=== PATIENT | male | born 1980 | race Two or more races ===

== ENCOUNTER 2020-03-19 13:23 | Inpatient (IN) | payer OTHER, SELFPAY ==
[2020-03-19 13:28] VITALS: BP 136/73; PULSE 73; RESP 18; TEMP 37.2; O2SAT 96; BMI 27.6
--- NOTE | 2020-03-19 13:32 | ED.PSYCH ---
HPI - Psych General Chief Complaint: Psychiatric Symptoms Stated Complaint: section 12,+SI Time Seen by Provider: 03/19/20 13:28 Source: EMS Mode of arrival: EMS Limitations: no limitations History of Present Illness HPI Narrative: 39-year-old male with past medical history of substance abuse and schizophrenia presenting EMS from [facility] with complaint of suicidal ideations. Patient currently on methadone went to detox apparently today and made statements of suicidal ideations with thoughts to ?overdose.... Cut throat? patient was subsequently Section 12 to the emergency room. He reports he has been increasingly feeling depressed has been taking his medications prescribed has not used any heroin or cocaine in over 30 days. He denies any medical complaints at this time. MD complaint: suicidal ideation and feels depressed Duration: constant History of same: Yes Relieving factors: none Exacerbating factors: none Associated psychiatric symptoms: depression and suicidal ideation Treatments prior to arrival: none If self harm: other Related Data Home Medications Medication Instructions Recorded Confirmed benztropine 0.5 mg PO BID 03/19/20 03/19/20 bupropion HCl 300 mg PO QAM 03/19/20 03/19/20 clonidine HCl 0.1 mg PO TID PRN 03/19/20 03/19/20 gabapentin 300 mg PO TID 03/19/20 03/19/20 haloperidol [Haldol] 5 mg PO BID 03/19/20 03/19/20 hydroxyzine pamoate 25 mg PO QID PRN 03/19/20 03/19/20 melatonin 6 mg PO BEDTIME 03/19/20 03/19/20 methadone 55 mg PO DAILY 03/19/20 03/19/20 mirtazapine 15 mg PO BEDTIME 03/19/20 03/19/20 trazodone 50 mg PO BEDTIME PRN 03/19/20 03/19/20 Allergies Allergy/AdvReac Type Severity Reaction Status Date / Time No Known Allergies Allergy Unverified 01/10/20 18:30 Review of Systems Review of Systems: Constitutional: No Weight loss, No Fever, No Chills, No Night Sweats, No Fatigue, No Malaise ENT/Mouth: No Hearing loss, No Ear Pain, No Nasal Congestion, No Sinus Pain, No Hoarseness, No sore throat, No Rhinorrhea, No Swallowing Difficulty Eyes: No Eye Pain, No Swelling, No Redness, No Foreign Body, No Discharge, No Vision Changes Cardiovascular: No Chest Pain, No SOB, No Dyspnea on Exertion, No Orthopnea, No Edema, No Palpitations Respiratory: No Cough, No Sputum, No Wheezing, No Dyspnea Gastrointestinal: No Nausea, No Vomiting, No Diarrhea, No Constipation, No abdominal Pain, No Hematochezia, No Melena Genitourinary: no irregular bleeding, No Dysuria, No Urinary Frequency, No Hematuria, No Urinary Incontinence, No Urgency, No Flank Pain, No Urinary Flow Changes, No Hesitancy Musculoskeletal: No joint pain, No Myalgias, No Joint Swelling Skin: No Skin Lesions, No rash Neuro: No Weakness, No Numbness, No Paresthesias, No Loss of Consciousness, No Dizziness, No Headache Psych: As noted in HPI Heme/Lymph: No Bruising, No Bleeding,No Lymphadenopathy Endocrine: No Polyuria, No Polydipsia, No Temperature Intolerance Yes all other systems are reviewed and are negative [facility] Past Medical History Medical History Schizophrenia Substance abuse Social History Social History Alcohol intake: unknown Use of substances other than those prescribed or required for medical reasons: Yes Substance Use Type: Crack/Cocaine and Heroin Substance Use Frequency: Chronic Longstanding Last Used Substance: Weeks (ago) Any prior treatment program specific to substance use: Yes Advance Directives: No Advance Directives Information Provided: No Physical Exam Vital Signs: Vital Signs: Last Vital Signs Temp 98.3 F 03/19/20 20:17 Pulse 89 03/19/20 20:17 Resp 20 03/19/20 20:17 BP 121/76 03/19/20 20:17 Pulse Ox 96 03/19/20 20:17 Body Mass Index 27.6 Reviewed Const: General: cooperative and healthy appearing; No acute distress or intoxicated appearing Nutritional Appearance: average body habitus Orientation/consciousness: patient oriented x3 HENMT: Head: Yes normal to inspection Ears: hearing grossly normal bilaterally Eyes: General: appearance normal, both eyes and all related structures Visual Thompson: normal visual thompson by confrontation Neck: Neck: Yes normal visual inspection, No positive Brudzinski's sign, No positive Kernig's sign and No tender Thyroid: Thyroid normal Chest: Chest palpation & inspection: normal inspection of the chest Resp: Effort & Inspection: normal respiratory effort Cardio: Jugular venous distension: no JVD GI: Inspection: Yes normal to inspection Percussion: Yes normal to percussion Auscultation: normal bowel sounds : General: Yes no CVA tenderness Back/Spine/Pelvis: Back: no CVA tenderness Skin: General skin exam: no rashes or lesions noted Neuro: General: patient oriented x3 Extrem: General: Yes normal to inspection Course Course Course Narrative: 1335 Offers no medical complaints. Will obtain medical screening labs and crisis evaluation. Reevaluation(s) Reevaluation #1: 1520 The nurses currently completing the med rec Labs overall stable medically cleared for psychiatric evaluation consult faxed to [facility]. Patient remains stable will continue monitor and dispo per plan. Reevaluation #2: Evaluated crisis team recommendation for respite level care. Able to secure respite in [facility] with recommendation to hold overnight to re-evaluate in the morning and be present given better wall been up in the morning. Crisis team will do MSU in the morning and re-presented to the respite. Reevaluation #3: 2110 Sign-out this time to Ti DAVENPORT Pending crisis re-evaluation/respite placement in the morning MDM - Psych Lab Data Result diagrams: 03/19/20 13:53 03/19/20 13:53 Labs: Lab Results 03/19/20 03/19/20 03/19/20 Range/Units 13:53 13:53 13:53 WBC 9.2 (4.8-10.8) X10*3/uL RBC 4.84 (4.60-5.80) X10*6/uL Hgb 12.4 L (14.0-18.0) g/dl Hct 38.9 L (42-52) % MCV 80.4 (80-98) fL MCH 25.6 L (27.0-33.0) pg MCHC 31.9 (31.0-36.0) g/dl RDW 15.2 (11.0-16.0) % Plt Count 171 (160-400) X10*3/uL MPV 12.0 (9.4-12.4) fL Immature Gran % (Auto) 0.3 (0.0-0.4) % Neut % (Auto) 66.0 (45-73) % Lymph % (Auto) 25.0 (20-40) % [place] % (Auto) 7.1 (2-11) % Eos % (Auto) 1.4 (0-4) % Baso % (Auto) 0.2 (0-2) % Lymph # (Auto) 2.3 (1.2-4.9) X10*3/uL [place] # (Auto) 0.7 (0.1-1.2) X10*3/uL Eos # (Auto) 0.1 (0.0-0.4) X10*3/uL Baso # (Auto) 0.0 (0.0-0.2) X10*3/uL Abs Immat Gran (auto) 0.03 (0.00-0.03) X10*3/uL Absolute Neuts (auto) 6.0 (2.0-8.3) X10*3/uL Absolute Nucleated RBC 0.000 (0.0-0.012) X10*3/uL Nucleated RBC % (auto) 0.0 (0.0-0.2) /100WBC Sodium 140 (135-145) mmol/L Potassium 4.4 (3.3-5.1) mmol/l Chloride 104 (96-108) mmol/L Carbon Dioxide 30 H (22-29) mmol/L Anion Gap 10 L (12-20) BUN 14 (9-16) mg/dL Creatinine 0.87 (0.5-1.4) mg/dL Estim Creat Clear Calc 103.3 Estimated GFR > 60 Random Glucose 90 (60-115) mg/dL Calcium 8.8 (8.4-10.2) mg/dL Total Bilirubin 0.3 (0.0-1.0) mg/dL AST 23 (5-37) U/L ALT 24 (0-40) U/L Alkaline Phosphatase 148 H (39-117) U/L Total Protein 7.3 (6.5-8.0) g/dL Albumin 4.1 (3.5-5.0) g/dL Urine Color Urine Appearance Urine pH (5.0-8.0) Ur Specific [place] (1.005-1.025) Urine Protein (NEG-TRACE) MG/DL Urine Glucose (UA) (NEG) MG/DL Urine Ketones (NEG) MG/DL Urine Blood (NEG) Urine Nitrite (NEG) Ur Leukocyte Esterase (NEG) Urine RBC (0) /HPF Urine WBC (0-4) /HPF Ur Squamous Epith Cells /LPF Urine Bacteria /LPF Urine Opiates Screen (Not Detect) Ur Barbiturates Screen (Not Detect) Ur Phencyclidine Scrn (Not Detect) Ur Amphetamines Screen (Not Detect) U Benzodiazepines Scrn (Not Detect) Urine Cocaine Screen (Not Detect) U Marijuana (THC) Screen (Not Detect) Ethyl Alcohol < 10 mg/dL 03/19/20 03/19/20 Range/Units 14:15 14:16 WBC (4.8-10.8) X10*3/uL RBC (4.60-5.80) X10*6/uL Hgb (14.0-18.0) g/dl Hct (42-52) % MCV (80-98) fL MCH (27.0-33.0) pg MCHC (31.0-36.0) g/dl RDW (11.0-16.0) % Plt Count (160-400) X10*3/uL MPV (9.4-12.4) fL Immature Gran % (Auto) (0.0-0.4) % Neut % (Auto) (45-73) % Lymph % (Auto) (20-40) % [place] % (Auto) (2-11) % Eos % (Auto) (0-4) % Baso % (Auto) (0-2) % Lymph # (Auto) (1.2-4.9) X10*3/uL [place] # (Auto) (0.1-1.2) X10*3/uL Eos # (Auto) (0.0-0.4) X10*3/uL Baso # (Auto) (0.0-0.2) X10*3/uL Abs Immat Gran (auto) (0.00-0.03) X10*3/uL Absolute Neuts (auto) (2.0-8.3) X10*3/uL Absolute Nucleated RBC (0.0-0.012) X10*3/uL Nucleated RBC % (auto) (0.0-0.2) /100WBC Sodium (135-145) mmol/L Potassium (3.3-5.1) mmol/l Chloride (96-108) mmol/L Carbon Dioxide (22-29) mmol/L Anion Gap (12-20) BUN (9-16) mg/dL Creatinine (0.5-1.4) mg/dL Estim Creat Clear Calc Estimated GFR Random Glucose (60-115) mg/dL Calcium (8.4-10.2) mg/dL Total Bilirubin (0.0-1.0) mg/dL AST (5-37) U/L ALT (0-40) U/L Alkaline Phosphatase (39-117) U/L Total Protein (6.5-8.0) g/dL Albumin (3.5-5.0) g/dL Urine Color YELLOW Urine Appearance CLEAR Urine pH 8.0 (5.0-8.0) Ur Specific [place] 1.020 (1.005-1.025) Urine Protein NEG (NEG-TRACE) MG/DL Urine Glucose (UA) NEG (NEG) MG/DL Urine Ketones NEG (NEG) MG/DL Urine Blood NEG (NEG) Urine Nitrite NEG (NEG) Ur Leukocyte Esterase NEG (NEG) Urine RBC 0 (0) /HPF Urine WBC 0 (0-4) /HPF Ur Squamous Epith Cells NONE /LPF Urine Bacteria NONE /LPF Urine Opiates Screen Not Detected (Not Detect) Ur Barbiturates Screen Not Detected (Not Detect) Ur Phencyclidine Scrn Not Detected (Not Detect) Ur Amphetamines Screen Not Detected (Not Detect) U Benzodiazepines Scrn Not Detected (Not Detect) Urine Cocaine Screen Not Detected (Not Detect) U Marijuana (THC) Screen Not Detected (Not Detect) Ethyl Alcohol mg/dL Discharge Plan Discharge Clinical Impression: Suicidal ideation, Depression Patient Disposition: Home, Self-Care Prescriptions: No Action benztropine 0.5 mg Tablet 0.5 mg PO BID RF: 0 haloperidol [Haldol] 5 mg Tablet 5 mg PO BID RF: 0 trazodone 50 mg Tablet 50 mg PO BEDTIME PRN (Reason: sleep) RF: 0 gabapentin 300 mg Capsule 300 mg PO TID RF: 0 mirtazapine 15 mg Tablet 15 mg PO BEDTIME RF: 0 bupropion HCl 300 mg Tablet Extended Release 24 Hr 300 mg PO QAM RF: 0 clonidine HCl 0.1 mg Tablet 0.1 mg PO TID PRN (Reason: Anxiety) RF: 0 methadone 10 mg/5 mL Solution 55 mg PO DAILY RF: 0 hydroxyzine pamoate 25 mg Capsule 25 mg PO QID PRN (Reason: Anxiety) RF: 0 melatonin 3 mg Tablet 6 mg PO BEDTIME RF: 0
[2020-03-19 14:02] LABS: Hematocrit 38.9 % (42-52); Hemoglobin 12.4 g/dl (14.0-18.0); Mean Corpuscular HGB Conc 31.9 g/dl (31.0-36.0); Mean Corpuscular Hemoglobin 25.6 pg (27.0-33.0); Mean Corpuscular Volume 80.4 fL (80-98); Platelet Count 171 X10*3/uL (160-400); Red Blood Count 4.84 X10*6/uL (4.60-5.80); Red Cell Distribution Width 15.2 % (11.0-16.0); White Blood Count 9.2 X10*3/uL (4.8-10.8)
[2020-03-19 14:03] LABS: Basophils Percent Auto 0.2 % (0-2); Eosinophils Absolute Auto 0.1 X10*3/uL (0.0-0.4); Eosinophils Percent Auto 1.4 % (0-4); Imm Gran Abs Auto 0.03 X10*3/uL (0.00-0.03); Imm Gran Pct Auto 0.3 % (0.0-0.4); Lymphocytes Absolute Auto 2.3 X10*3/uL (1.2-4.9); MANUAL DIFF FLAG NO; Monocytes Absolute Auto 0.7 X10*3/uL (0.1-1.2); Monocytes Percent Auto 7.1 % (2-11)
--- NOTE | 2020-03-19 14:03 | PC.NURSE ---
Pt currently resting in room, eating lunch. Report received from MYRTLE Parkinson
[2020-03-19 14:25] LABS: Alanine Aminotransferase 24 U/L (0-40); Albumin Level 4.1 g/dL (3.5-5.0); Alkaline Phosphatase 148 U/L (39-117); Anion Gap 10 (12-20); Aspartate Amino Transferase 23 U/L (5-37); Bilirubin Total 0.3 mg/dL (0.0-1.0); Blood Urea Nitrogen 14 mg/dL (9-16); Calcium 8.8 mg/dL (8.4-10.2); Carbon Dioxide 30 mmol/L (22-29); Chloride 104 mmol/L (96-108); Creatinine Clr Calc Pharmacy 103.3; Estimated Glomerular Filt Rate > 60; Glucose Random 90 mg/dL (60-115); Potassium 4.4 mmol/l (3.3-5.1); Sodium 140 mmol/L (135-145); Total Protein 7.3 g/dL (6.5-8.0)
[2020-03-19 14:33] LABS: Ethanol < 10 mg/dL
[2020-03-19 14:35] LABS: Glucose Urine UA NEG (NEG); Leukocyte Esterase Urine NEG (NEG); Nitrite Urine NEG (NEG); Urine Blood NEG (NEG); Urine Ketones NEG (NEG); Urine Protein NEG (NEG-TRACE)
[2020-03-19 14:39] LABS: Appearance Urine CLEAR; Color Urine YELLOW
[2020-03-19 14:53] LABS: RBC Urine 0 /HPF (0); WBC Urine 0 /HPF (0-4)
[2020-03-19 14:57] LABS: Amphetamine Screen Urine Not Detected (Not Detect); Barbiturates, Urine Not Detected (Not Detect); Benzodiazepines Screen Urine Not Detected (Not Detect); Cannabinoid Screen Urine Not Detected (Not Detect); Cocaine Screen Urine Not Detected (Not Detect); Opiate Screen Urine Not Detected (Not Detect); Phencyclidine Screen Urine Not Detected (Not Detect)
--- NOTE | 2020-03-19 15:08 | PC.NURSE ---
Pt out of the shower, reports increased anxiety, SI. Pt reports that Haldol is effective.A Rosalia cosme.
[2020-03-19] MEDS: HaloperidoL 5 MG TABLET PO ×2 (15:31→20:14)
--- NOTE | 2020-03-19 15:40 | PC.NURSE ---
MAYA Faxed and called.
[2020-03-19 16:00] VITALS: RESP 20
--- NOTE | 2020-03-19 16:48 | PC.NURSE ---
BHN in to evaluate. Late entry: Med rec completed w/ pt and referred to provider.
[2020-03-19] MEDS: Gabapentin 300 MG CAPSULE PO ×2 (17:25→20:16)
[2020-03-19 18:00] VITALS: RESP 18
[2020-03-19] MEDS: Magnesium Hydrox/Alum Hydrox 30 ML ORAL.SUSP PO (19:17)
--- NOTE | 2020-03-19 19:21 | PC.NURSE ---
Patient is in his room sitting, watching TV, and laughing intermittently while responding to the TV show, reported heartburn/administered Maalox as ordered/pending effect. BHN completed assessment/pending disposition at this time, no other distress reported at this time, will continue to monitor.
--- NOTE | 2020-03-19 19:40 | PC.NURSE ---
STEPHANIEN updated patient's disposition, re-evaluation and represent to Respite tomorrow.
[2020-03-19] MEDS: Benztropine Mesylate 0.5 MG TABLET PO (20:14)
[2020-03-19] MEDS: Melatonin 3 MG TABLET 6 MG PO (20:14)
[2020-03-19] MEDS: Mirtazapine 15 MG TABLET PO (20:14)
[2020-03-19] MEDS: traZODone HCL 50 MG TABLET PO (20:14)
[2020-03-19 20:17] VITALS: BP 121/76; PULSE 89; RESP 20; TEMP 36.8; O2SAT 96
--- NOTE | 2020-03-19 21:31 | PC.NURSE ---
Patient compliant with HS po medication, calm and quiet, denied distress, will continue to monitor.
--- NOTE | 2020-03-20 | ECG_ITS ---
Test Reason : PRE ADMISSION Blood Pressure : / mmHG Vent. Rate : 072 BPM Atrial Rate : 072 BPM P-R Int : 128 ms QRS Dur : 090 ms QT Int : 404 ms P-R-T Axes : 021 058 037 degrees QTc Int : 442 ms Normal sinus rhythm Normal ECG No previous ECGs available Referred By: Aleah White Electronically Signed By:DEE LANDRY MD
--- NOTE | 2020-03-20 02:04 | PC.NURSE ---
Patient in bed appears sleeping, no distress observed/reported, will continue tomonitor.
[2020-03-20] MEDS: hydrOXYzine HCL 25 MG TABLET PO ×4 (04:28→22:50)
[2020-03-20 06:00] VITALS: BP 130/92; PULSE 96; RESP 18; TEMP 36.2; O2SAT 94
--- NOTE | 2020-03-20 06:54 | PC.NURSE ---
Report recieved. PT currently sleeping, respirations even and unlabored, in no apparent distress. Pt to be re-evaluated by N this morning.
[2020-03-20] MEDS: buPROPion HCl XL 300 MG TAB.ER.24H PO (09:18)
[2020-03-20] MEDS: HaloperidoL 5 MG TABLET PO ×2 (09:18→22:50)
[2020-03-20] MEDS: Benztropine Mesylate 0.5 MG TABLET PO ×2 (09:18→22:51)
[2020-03-20 09:19] VITALS: BP 112/73; PULSE 81; RESP 18; TEMP 36.6; O2SAT 98
[2020-03-20] MEDS: Gabapentin 300 MG CAPSULE PO ×3 (11:04→22:50)
--- NOTE | 2020-03-20 11:12 | PC.NURSE ---
Per [facility], pt is inpatient bedsearch. Care team requesting Covid swab
[2020-03-20 12:07] LABS: COVID-19 Test Negative (Negative); IDNOW Serial# 9DD0AD1C
[2020-03-20 13:24] VITALS: BP 112/73
[2020-03-20] MEDS: cloNIDine HCL 0.1 MG TABLET PO ×2 (13:24→22:51)
--- NOTE | 2020-03-20 16:34 | PC.NURSE ---
PT currently watching tv, calm and cooperative, denies complaints. PT pleasant in conversation.
[2020-03-20 17:28] VITALS: BP 111/68; PULSE 79; RESP 18; TEMP 36.6; O2SAT 97
[2020-03-20 19:23] VITALS: BP 107/69; PULSE 89; TEMP 36.8
[2020-03-20] MEDS: Melatonin 3 MG TABLET 6 MG PO (22:49)
[2020-03-20] MEDS: Mirtazapine 15 MG TABLET PO (22:50)
[2020-03-20 22:51] VITALS: BP 101/61; PULSE 81
[2020-03-20] MEDS: Magnesium Hydrox/Alum Hydrox 30 ML ORAL.SUSP PO (23:03)
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
[2020-03-21 06:59] VITALS: BP 107/67; PULSE 90; TEMP 36.7
[2020-03-21] MEDS: buPROPion HCl XL 300 MG TAB.ER.24H PO (09:43)
[2020-03-21] MEDS: HaloperidoL 5 MG TABLET PO (09:43)
[2020-03-21] MEDS: Gabapentin 300 MG CAPSULE PO (09:44)
[2020-03-21] MEDS: Benztropine Mesylate 0.5 MG TABLET PO ×2 (09:44→22:18)
[2020-03-21 10:02] VITALS: BP 107/67; PULSE 90
[2020-03-21] MEDS: cloNIDine HCL 0.1 MG TABLET PO ×2 (10:02→15:22)
[2020-03-21] MEDS: hydrOXYzine HCL 25 MG TABLET PO ×3 (10:03→19:12)
[2020-03-21] MEDS: Nicotine 21 MG PATCH.TD24 TRANSDERMA (11:58)
[2020-03-21 15:22] VITALS: BP 110/56; PULSE 85
[2020-03-21] MEDS: Magnesium Hydrox/Alum Hydrox 30 ML ORAL.SUSP PO (15:22)
[2020-03-21] MEDS: Gabapentin 300 MG CAPSULE 600 MG PO ×2 (15:25→22:18)
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
[2020-03-21 18:00] VITALS: BP 114/52; PULSE 84; TEMP 36.8
[2020-03-21] MEDS: Acetaminophen 325 MG TABLET 650 MG PO (18:02)
[2020-03-21] MEDS: HaloperidoL 5 MG TABLET 10 MG PO (22:19)
[2020-03-21] MEDS: Melatonin 3 MG TABLET 6 MG PO (22:19)
[2020-03-21] MEDS: Mirtazapine 15 MG TABLET PO (22:20)
[2020-03-22 06:30] VITALS: BP 102/59; PULSE 75; RESP 18; TEMP 36.6; O2SAT 98
[2020-03-22 08:46] LABS: Estimated Average Glucose 97 mg/dL
[2020-03-22] MEDS: Nicotine 21 MG PATCH.TD24 TRANSDERMA (08:51)
[2020-03-22] MEDS: Benztropine Mesylate 0.5 MG TABLET PO ×2 (08:52→22:54)
[2020-03-22] MEDS: buPROPion HCl XL 300 MG TAB.ER.24H PO (08:52)
[2020-03-22] MEDS: HaloperidoL 5 MG TABLET PO ×3 (08:52→19:15)
[2020-03-22] MEDS: Gabapentin 300 MG CAPSULE 600 MG PO ×2 (08:52→22:54)
[2020-03-22 09:28] VITALS: BP 102/59; PULSE 75
[2020-03-22] MEDS: cloNIDine HCL 0.1 MG TABLET PO ×2 (09:28→22:56)
[2020-03-22] MEDS: hydrOXYzine HCL 25 MG TABLET PO ×2 (09:28→22:54)
[2020-03-22] MEDS: LORazepam 1 MG TABLET PO (12:38)
--- NOTE | 2020-03-22 13:22 | HO.PSYCHPN ---
Subjective Subjective Date of Service: 03/22/20 Reason For Visit: depressed mood Subjective Notes: Conditional Voluntary Interim History: Chevy continues to struggle with AH and SI. He was able to go to staff since he was not feeling safe. He was placed on 5 minute checks and has an additional haldol. He was able to talk about how sad he feels and that he is ashamed of the mistakes he has made. Medication Compliance: Yes Side effects from medications: No Attending Groups: Intermittent Review of Systems Acute medical concerns: No Medical Review of Systems: unchanged Mental Status Exam Mental Status Exam Patient Appearance: Well Grooomed and Fatigued Patient Orientation: Person, Place, Time and Situation Level of Consciousness: Awake Patient Behavior: Appropriate and Cooperative Mood Description: Calm and Sad Affect Description: Calm and Sad Speech Pattern: Clear, Appropriate and Soft-Spoken Memory Description: Intact Hallucinations: Auditory and Visual Delusions: Not Present Thought Process: Rumination and Goal Oriented Thought Content: positive for Intact, positive for Goal Oriented, negative for Suicidal Ideation (Thoughts of hanging himself but able to use staff support) and negative for Homicidal Ideation Depressive Symptoms: Feelings of Worthlessness, Hopelessness, Unhappiness, Increased Fatigue, Thoughts of /Suicide and Low Self Esteem Judgement: Fair Diagnostics Vital Signs (24Hr): Vital Signs - 24 hr 03/21/20 15:22 03/21/20 18:00 03/22/20 06:30 Temperature 98.3 F 97.8 F Pulse Rate 85 84 75 Respiratory Rate 18 Blood Pressure 110/56 L 114/52 L 102/59 L Pulse Oximetry 98 03/22/20 09:28 Temperature Pulse Rate 75 Respiratory Rate Blood Pressure 102/59 L Pulse Oximetry Body Mass Index 27.6 Labs Results: 03/19/20 13:53 03/19/20 13:53 Labs: Laboratory Results - last 48 hr 03/22/20 07:29 Estimat Average Glucose 97 Hemoglobin A1c % 5.0 Medications Medications Current Medications Generic Name Dose Route Start Last Admin Trade Name Freq PRN Reason Stop Dose Admin Acetaminophen 650 mg 03/20/20 18:31 03/21/20 18:02 Acetaminophen 325 Mg Tablet PO 650 mg Q6H PRN Administration Headache/Pain Mild Scale (1-3) Al Hydroxide/Mg Hydroxide 30 ml 03/20/20 18:31 03/21/20 15:22 Magnesium Hydrox/Alum Hydrox 30 Ml Oral.Susp PO 30 ml Q6H PRN Administration Heartburn/Nausea Benztropine Mesylate 0.5 mg 03/19/20 21:00 03/22/20 08:52 Benztropine Mesylate 0.5 Mg Tablet PO 0.5 mg BID SAM Administration Bupropion HCl 300 mg 03/20/20 09:00 03/22/20 08:52 Bupropion Hcl Xl 300 Mg Tab.Er.24h PO 300 mg DAILY SAM Administration Clonidine HCl 0.1 mg 03/19/20 17:01 03/22/20 09:28 Clonidine Hcl 0.1 Mg Tablet PO 0.1 mg TID PRN Administration Anxiety Protocol Gabapentin 600 mg 03/21/20 15:00 03/22/20 08:52 Gabapentin 300 Mg Capsule PO 600 mg TID SAM Administration Haloperidol 5 mg 03/22/20 09:00 03/22/20 08:52 Haloperidol 5 Mg Tablet PO 5 mg DAILY SAM Administration Haloperidol 10 mg 03/21/20 21:00 03/21/20 22:19 Haloperidol 5 Mg Tablet PO 10 mg BEDTIME SAM Administration Hydroxyzine HCl 25 mg 03/19/20 17:10 03/22/20 09:28 Hydroxyzine Hcl 25 Mg Tablet PO 25 mg QID PRN Administration Anxiety Magnesium Hydroxide 30 ml 03/20/20 18:31 Milk Of Magnesia 30 Ml Oral.Susp PO DAILY PRN Constipation Melatonin 6 mg 03/19/20 21:00 03/21/20 22:19 Melatonin 3 Mg Tablet PO 6 mg BEDTIME SAM Administration Methadone HCl 50 mg 03/20/20 10:47 03/22/20 08:51 Methadone Hcl 1 Mg/0.1 Ml Oral.Conc PO 50 mg DAILY SAM Administration Mirtazapine 15 mg 03/19/20 21:00 03/21/20 22:20 Mirtazapine 15 Mg Tablet PO 15 mg BEDTIME SAM Administration Nicotine 21 mg 03/21/20 11:00 03/22/20 08:51 Nicotine 21 Mg Patch.Td24 TRANSDERMA 21 mg DAILY SAM Administration Trazodone HCl 50 mg 03/20/20 18:31 Trazodone Hcl 50 Mg Tablet PO BEDTIME PRN Insomnia Allergies Allergies Allergy/AdvReac Type Severity Reaction Status Date / Time No Known Allergies Allergy Unverified 01/10/20 18:30 Assessment & Plan Assessment & Plan (1) PTSD (post-traumatic stress disorder): Status: Acute Code(s): F43.10 - Post-traumatic stress disorder, unspecified Assessment and Plan: Continue current treatment plan Greater than 50% of the session was spent on counseling and/or coordination of care Patient educated on: diagnosis, medication risk/benefits and substance abuse Informed Consent: further education needed Reason for contiued inpatient stay Substantial Risk for: harm to self and rapid decompensation
--- NOTE | 2020-03-22 15:16 | PC.NURSE ---
Addendum entered by Malissa Cordero RN 03/22/20 15:31: TYPO's below. PT given ONE mg ativan not ten: see EMAR. Pt's voices tell him he should go to hell. Pt agreed to come to staff if he was having urges to act on his suicidal ideation. Original Note: Pt presented as very anxious today during contact. Pt was rocking back and forth and bouncing his legs. Pt was tearful as he talked about the voices that he hears that tell him he is worthless and should go to tell. When asked about si, pt reported that he was having thoughts to kill himself. Pt was having thoughts to hang himself but could not identify how he could do that on the unit. MD notified. Pt placed on 5 minute safety checks with locked bathroom and STAT orders for haldol 5mg, po and ativan, 10mg po obtained. Meds were effective for pt's anxiety and psychosis but did cause him sedation. 1500 dose of gabapentin 600mg held as a result and MD notified. PT educated that he is on 5 minute checks now for safety and he was understanding of this. .
[2020-03-22 19:16] VITALS: BP 111/65; PULSE 89; TEMP 36.9
[2020-03-22] MEDS: HaloperidoL 5 MG TABLET 10 MG PO (22:54)
[2020-03-22] MEDS: Mirtazapine 15 MG TABLET PO (22:54)
[2020-03-22] MEDS: Melatonin 3 MG TABLET 6 MG PO (22:54)
[2020-03-22 22:56] VITALS: BP 115/62; PULSE 84
[2020-03-23 06:00] VITALS: BP 96/56; TEMP 35.8
[2020-03-23 06:18] VITALS: BP 96/56; PULSE 70; RESP 16; TEMP 35.8; O2SAT 96
[2020-03-23] MEDS: HaloperidoL 5 MG TABLET PO ×2 (08:55→15:04)
[2020-03-23] MEDS: buPROPion HCl XL 150 MG TAB.ER.24H 450 MG PO (08:56)
[2020-03-23] MEDS: Gabapentin 300 MG CAPSULE 600 MG PO ×3 (08:57→20:53)
[2020-03-23] MEDS: Benztropine Mesylate 0.5 MG TABLET PO ×2 (08:57→20:53)
[2020-03-23] MEDS: Nicotine 21 MG PATCH.TD24 TRANSDERMA (08:59)
[2020-03-23] MEDS: LORazepam 1 MG TABLET PO ×3 (12:26→21:01)
--- NOTE | 2020-03-23 13:41 | HO.PSYCHPN ---
Subjective Subjective Date of Service: 03/23/20 Reason For Visit: depressed mood Subjective Notes: Conditional Voluntary Interim History: Chevy is feeling slightly more grounded and supported though he is ruminating about how he has let his mother down. Medication Compliance: Yes Side effects from medications: No Attending Groups: Yes Review of Systems Acute medical concerns: No Medical Review of Systems: unchanged Mental Status Exam Mental Status Exam Patient Appearance: Well Grooomed and Fatigued Patient Orientation: Person, Place, Time and Situation Level of Consciousness: Awake Patient Behavior: Appropriate and Cooperative Mood Description: Calm and Sad Affect Description: Calm and Sad Speech Pattern: Clear, Appropriate and Soft-Spoken Memory Description: Intact Hallucinations: Auditory and Visual Delusions: Not Present Thought Process: Rumination and Goal Oriented Thought Content: positive for Intact, positive for Goal Oriented, negative for Suicidal Ideation (Thoughts of hanging himself but able to use staff support) and negative for Homicidal Ideation Depressive Symptoms: Feelings of Worthlessness, Hopelessness, Unhappiness, Increased Fatigue, Thoughts of /Suicide and Low Self Esteem Judgement: Fair Diagnostics Vital Signs (24Hr): Vital Signs - 24 hr 03/22/20 19:16 03/22/20 22:56 03/23/20 06:00 Temperature 98.4 F 96.5 F L Pulse Rate 89 84 Respiratory Rate Blood Pressure 111/65 115/62 96/56 L Pulse Oximetry 03/23/20 06:18 Temperature 96.5 F L Pulse Rate 70 Respiratory Rate 16 Blood Pressure 96/56 L Pulse Oximetry 96 Body Mass Index 27.6 Labs Results: 03/19/20 13:53 03/19/20 13:53 Labs: Laboratory Results - last 48 hr 03/22/20 07:29 Estimat Average Glucose 97 Hemoglobin A1c % 5.0 Medications Medications Current Medications Generic Name Dose Route Start Last Admin Trade Name Freq PRN Reason Stop Dose Admin Acetaminophen 650 mg 03/20/20 18:31 03/21/20 18:02 Acetaminophen 325 Mg Tablet PO 650 mg Q6H PRN Administration Headache/Pain Mild Scale (1-3) Al Hydroxide/Mg Hydroxide 30 ml 03/20/20 18:31 03/21/20 15:22 Magnesium Hydrox/Alum Hydrox 30 Ml Oral.Susp PO 30 ml Q6H PRN Administration Heartburn/Nausea Benztropine Mesylate 0.5 mg 03/19/20 21:00 03/23/20 08:57 Benztropine Mesylate 0.5 Mg Tablet PO 0.5 mg BID SAM Administration Bupropion HCl 450 mg 03/23/20 09:00 03/23/20 08:56 Bupropion Hcl Xl 150 Mg Tab.Er.24h PO 450 mg DAILY SAM Administration Clonidine HCl 0.1 mg 03/19/20 17:01 03/22/20 22:56 Clonidine Hcl 0.1 Mg Tablet PO 0.1 mg TID PRN Administration Anxiety Protocol Gabapentin 600 mg 03/21/20 15:00 03/23/20 08:57 Gabapentin 300 Mg Capsule PO 600 mg TID SAM Administration Haloperidol 5 mg 03/22/20 09:00 03/23/20 08:55 Haloperidol 5 Mg Tablet PO 5 mg DAILY SAM Administration Haloperidol 10 mg 03/21/20 21:00 03/22/20 22:54 Haloperidol 5 Mg Tablet PO 10 mg BEDTIME SAM Administration Haloperidol 5 mg 03/22/20 18:50 03/22/20 19:15 Haloperidol 5 Mg Tablet PO 5 mg Q4H PRN Administration Auditory hallucinations Hydroxyzine HCl 25 mg 03/19/20 17:10 03/22/20 22:54 Hydroxyzine Hcl 25 Mg Tablet PO 25 mg QID PRN Administration Anxiety Lorazepam 1 mg 03/22/20 18:51 03/23/20 12:26 Lorazepam 1 Mg Tablet PO 1 mg Q4H PRN Administration Anxiety Magnesium Hydroxide 30 ml 03/20/20 18:31 Milk Of Magnesia 30 Ml Oral.Susp PO DAILY PRN Constipation Melatonin 6 mg 03/19/20 21:00 03/22/20 22:54 Melatonin 3 Mg Tablet PO 6 mg BEDTIME SAM Administration Methadone HCl 50 mg 03/20/20 10:47 03/23/20 08:54 Methadone Hcl 1 Mg/0.1 Ml Oral.Conc PO 50 mg DAILY SAM Administration Mirtazapine 15 mg 03/19/20 21:00 03/22/20 22:54 Mirtazapine 15 Mg Tablet PO 15 mg BEDTIME SAM Administration Nicotine 21 mg 03/21/20 11:00 03/23/20 08:59 Nicotine 21 Mg Patch.Td24 TRANSDERMA 21 mg DAILY SAM Administration Trazodone HCl 50 mg 03/20/20 18:31 Trazodone Hcl 50 Mg Tablet PO BEDTIME PRN Insomnia Allergies Allergies Allergy/AdvReac Type Severity Reaction Status Date / Time No Known Allergies Allergy Unverified 01/10/20 18:30 Assessment & Plan Assessment & Plan (1) PTSD (post-traumatic stress disorder): Status: Acute Code(s): F43.10 - Post-traumatic stress disorder, unspecified (2) Polysubstance (including opioids) dependence, daily use: Status: Acute Code(s): F11.20 - Opioid dependence, uncomplicated; F19.20 - Other psychoactive substance dependence, uncomplicated Greater than 50% of the session was spent on counseling and/or coordination of care Patient educated on: diagnosis, medication risk/benefits and substance abuse Informed Consent: further education needed Reason for contiued inpatient stay Substantial Risk for: rapid decompensation
[2020-03-23 20:53] VITALS: BP 119/76; PULSE 95
[2020-03-23] MEDS: HaloperidoL 5 MG TABLET 10 MG PO (20:53)
[2020-03-23] MEDS: cloNIDine HCL 0.1 MG TABLET PO (20:53)
[2020-03-23] MEDS: hydrOXYzine HCL 25 MG TABLET PO (20:53)
[2020-03-23] MEDS: Melatonin 3 MG TABLET 6 MG PO (20:53)
[2020-03-23] MEDS: Mirtazapine 15 MG TABLET PO (20:58)
[2020-03-23 21:02] VITALS: TEMP 36.9
[2020-03-24] MEDS: buPROPion HCl XL 150 MG TAB.ER.24H 450 MG PO (09:09)
[2020-03-24] MEDS: HaloperidoL 5 MG TABLET PO (09:09)
[2020-03-24] MEDS: Gabapentin 300 MG CAPSULE 600 MG PO ×2 (09:09→22:03)
[2020-03-24] MEDS: Nicotine 21 MG PATCH.TD24 TRANSDERMA (09:09)
[2020-03-24] MEDS: Benztropine Mesylate 0.5 MG TABLET PO ×2 (09:09→22:03)
--- NOTE | 2020-03-24 09:26 | HO.PSYCHPN ---
Subjective Subjective Date of Service: 03/24/20 Reason For Visit: depressed mood Subjective Notes: Conditional Voluntary Interim History: As noted in RN note, Chevy was very sedated today. No medications have been changed. Will hold afternoon gabapentin and re-evaluate. Medication Compliance: Yes Side effects from medications: Yes (Sedation) Attending Groups: Intermittent Review of Systems Acute medical concerns: No Medical Review of Systems: unchanged Mental Status Exam Mental Status Exam Patient Appearance: Fatigued Patient Orientation: Person, Place, Time and Situation Level of Consciousness: Drowsy Patient Behavior: Appropriate and Cooperative Mood Description: Calm and Sad Affect Description: Calm and Sad Speech Pattern: Clear, Appropriate and Soft-Spoken Memory Description: Intact Hallucinations: Auditory and Visual Delusions: Not Present Thought Process: Rumination and Goal Oriented Thought Content: positive for Intact, positive for Goal Oriented, negative for Suicidal Ideation (Thoughts of hanging himself but able to use staff support) and negative for Homicidal Ideation Depressive Symptoms: Feelings of Worthlessness, Hopelessness, Unhappiness, Increased Fatigue, Thoughts of /Suicide and Low Self Esteem Judgement: Fair Diagnostics Vital Signs (24Hr): Vital Signs - 24 hr 03/23/20 20:53 03/23/20 21:02 Temperature 98.5 F Pulse Rate 95 Blood Pressure 119/76 Body Mass Index 27.6 Labs Results: 03/19/20 13:53 03/19/20 13:53 Medications Medications Current Medications Generic Name Dose Route Start Last Admin Trade Name Freq PRN Reason Stop Dose Admin Acetaminophen 650 mg 03/20/20 18:31 03/21/20 18:02 Acetaminophen 325 Mg Tablet PO 650 mg Q6H PRN Administration Headache/Pain Mild Scale (1-3) Al Hydroxide/Mg Hydroxide 30 ml 03/20/20 18:31 03/21/20 15:22 Magnesium Hydrox/Alum Hydrox 30 Ml Oral.Susp PO 30 ml Q6H PRN Administration Heartburn/Nausea Benztropine Mesylate 0.5 mg 03/19/20 21:00 03/24/20 09:09 Benztropine Mesylate 0.5 Mg Tablet PO 0.5 mg BID SAM Administration Bupropion HCl 450 mg 03/23/20 09:00 03/24/20 09:09 Bupropion Hcl Xl 150 Mg Tab.Er.24h PO 450 mg DAILY SAM Administration Clonidine HCl 0.1 mg 03/19/20 17:01 03/23/20 20:53 Clonidine Hcl 0.1 Mg Tablet PO 0.1 mg TID PRN Administration Anxiety Protocol Gabapentin 600 mg 03/21/20 15:00 03/24/20 09:09 Gabapentin 300 Mg Capsule PO 600 mg TID SAM Administration Haloperidol 5 mg 03/22/20 09:00 03/24/20 09:09 Haloperidol 5 Mg Tablet PO 5 mg DAILY SAM Administration Haloperidol 10 mg 03/21/20 21:00 03/23/20 20:53 Haloperidol 5 Mg Tablet PO 10 mg BEDTIME SAM Administration Haloperidol 5 mg 03/22/20 18:50 03/23/20 15:04 Haloperidol 5 Mg Tablet PO 5 mg Q4H PRN Administration Auditory hallucinations Hydroxyzine HCl 25 mg 03/19/20 17:10 03/23/20 20:53 Hydroxyzine Hcl 25 Mg Tablet PO 25 mg QID PRN Administration Anxiety Lorazepam 1 mg 03/22/20 18:51 03/23/20 21:01 Lorazepam 1 Mg Tablet PO 1 mg Q4H PRN Administration Anxiety Magnesium Hydroxide 30 ml 03/20/20 18:31 Milk Of Magnesia 30 Ml Oral.Susp PO DAILY PRN Constipation Melatonin 6 mg 03/19/20 21:00 03/23/20 20:53 Melatonin 3 Mg Tablet PO 6 mg BEDTIME SAM Administration Methadone HCl 50 mg 03/20/20 10:47 03/24/20 09:09 Methadone Hcl 1 Mg/0.1 Ml Oral.Conc PO 50 mg DAILY SAM Administration Mirtazapine 15 mg 03/19/20 21:00 03/23/20 20:58 Mirtazapine 15 Mg Tablet PO 15 mg BEDTIME SAM Administration Nicotine 21 mg 03/21/20 11:00 03/24/20 09:09 Nicotine 21 Mg Patch.Td24 TRANSDERMA 21 mg DAILY SAM Administration Trazodone HCl 50 mg 03/20/20 18:31 Trazodone Hcl 50 Mg Tablet PO BEDTIME PRN Insomnia Allergies Allergies Allergy/AdvReac Type Severity Reaction Status Date / Time No Known Allergies Allergy Unverified 01/10/20 18:30 Assessment & Plan Assessment & Plan (1) PTSD (post-traumatic stress disorder): Status: Acute Code(s): F43.10 - Post-traumatic stress disorder, unspecified (2) Polysubstance (including opioids) dependence, daily use: Status: Acute Code(s): F11.20 - Opioid dependence, uncomplicated; F19.20 - Other psychoactive substance dependence, uncomplicated Assessment and Plan: CT current plan. Hold medications when sedated Re-evaluate Greater than 50% of the session was spent on counseling and/or coordination of care Patient educated on: diagnosis, medication risk/benefits and substance abuse Informed Consent: further education needed Reason for contiued inpatient stay Substantial Risk for: rapid decompensation
[2020-03-24 10:04] VITALS: BP 113/58; PULSE 94; RESP 16; TEMP 36.8; O2SAT 98
[2020-03-24 10:55] VITALS: BP 113/60; PULSE 94
[2020-03-24] MEDS: cloNIDine HCL 0.1 MG TABLET PO ×2 (10:55→16:34)
[2020-03-24] MEDS: hydrOXYzine HCL 25 MG TABLET PO ×2 (10:56→16:34)
--- NOTE | 2020-03-24 14:15 | PC.NURSE ---
pt very sedated. sitting in chair with feet up on his bed with tray from lunch still on his lap. sleeping with head nod happening. will hold afternoon gabapentin at this time unless he clears in time to recieve it.
[2020-03-24 16:34] VITALS: BP 115/91; PULSE 97
[2020-03-24] MEDS: LORazepam 1 MG TABLET PO (16:35)
[2020-03-24 16:42] VITALS: BP 115/91; PULSE 97; TEMP 36.8
[2020-03-24 18:00] VITALS: BP 104/56; PULSE 99; TEMP 36.4
[2020-03-24] MEDS: Melatonin 3 MG TABLET 6 MG PO (22:02)
[2020-03-24] MEDS: Mirtazapine 15 MG TABLET PO (22:03)
[2020-03-24] MEDS: HaloperidoL 5 MG TABLET 10 MG PO (22:03)
[2020-03-25 08:33] VITALS: BP 114/66; PULSE 75; TEMP 36.3
[2020-03-25] MEDS: Benztropine Mesylate 0.5 MG TABLET PO ×2 (08:52→21:01)
[2020-03-25] MEDS: Gabapentin 300 MG CAPSULE 600 MG PO ×3 (08:52→21:01)
[2020-03-25] MEDS: buPROPion HCl XL 150 MG TAB.ER.24H 450 MG PO (08:52)
[2020-03-25] MEDS: HaloperidoL 5 MG TABLET PO (08:52)
[2020-03-25] MEDS: Nicotine 21 MG PATCH.TD24 TRANSDERMA (08:53)
[2020-03-25] MEDS: LORazepam 1 MG TABLET PO ×3 (09:57→21:10)
[2020-03-25] MEDS: Acetaminophen 325 MG TABLET 650 MG PO (14:38)
--- NOTE | 2020-03-25 15:21 | HO.PSYCHPN ---
Subjective Subjective Date of Service: 03/25/20 Reason For Visit: depressed mood Subjective Notes: Conditional Voluntary Interim History: Chevy is much less sedated today and he has been up and about on the unit. He is expressing interest in being able to go to a [facility] when he is feeling better. He does not have thoughts of self harm at this time. Medication Compliance: Yes Side effects from medications: No Attending Groups: Yes Review of Systems Acute medical concerns: No Medical Review of Systems: unchanged Mental Status Exam Mental Status Exam Patient Appearance: Well Grooomed Patient Orientation: Person, Place, Time and Situation Level of Consciousness: Awake Patient Behavior: Appropriate and Cooperative Mood Description: Calm and Sad Affect Description: Calm and Sad Speech Pattern: Clear, Appropriate and Soft-Spoken Memory Description: Intact Hallucinations: Auditory (Less) Delusions: Not Present Thought Process: Rumination and Goal Oriented Thought Content: positive for Intact, positive for Goal Oriented, negative for Suicidal Ideation (Thoughts of hanging himself but able to use staff support) and negative for Homicidal Ideation Depressive Symptoms: Feelings of Worthlessness, Hopelessness, Unhappiness, Increased Fatigue, Thoughts of /Suicide and Low Self Esteem Judgement: Fair Diagnostics Vital Signs (24Hr): Vital Signs - 24 hr 03/24/20 16:34 03/24/20 16:42 03/24/20 18:00 Temperature 98.3 F 97.6 F Pulse Rate 97 97 99 Blood Pressure 115/91 H 115/91 H 104/56 L 03/25/20 08:33 Temperature 97.4 F Pulse Rate 75 Blood Pressure 114/66 Body Mass Index 27.6 Labs Results: 03/19/20 13:53 03/19/20 13:53 Medications Medications Current Medications Generic Name Dose Route Start Last Admin Trade Name Freq PRN Reason Stop Dose Admin Acetaminophen 650 mg 03/20/20 18:31 03/25/20 14:38 Acetaminophen 325 Mg Tablet PO 650 mg Q6H PRN Administration Headache/Pain Mild Scale (1-3) Al Hydroxide/Mg Hydroxide 30 ml 03/20/20 18:31 03/21/20 15:22 Magnesium Hydrox/Alum Hydrox 30 Ml Oral.Susp PO 30 ml Q6H PRN Administration Heartburn/Nausea Benztropine Mesylate 0.5 mg 03/19/20 21:00 03/25/20 08:52 Benztropine Mesylate 0.5 Mg Tablet PO 0.5 mg BID SAM Administration Bupropion HCl 450 mg 03/23/20 09:00 03/25/20 08:52 Bupropion Hcl Xl 150 Mg Tab.Er.24h PO 450 mg DAILY SAM Administration Clonidine HCl 0.1 mg 03/19/20 17:01 03/24/20 16:34 Clonidine Hcl 0.1 Mg Tablet PO 0.1 mg TID PRN Administration Anxiety Protocol Gabapentin 600 mg 03/21/20 15:00 03/25/20 14:38 Gabapentin 300 Mg Capsule PO 600 mg TID SAM Administration Haloperidol 5 mg 03/22/20 09:00 03/25/20 08:52 Haloperidol 5 Mg Tablet PO 5 mg DAILY SAM Administration Haloperidol 10 mg 03/21/20 21:00 03/24/20 22:03 Haloperidol 5 Mg Tablet PO 10 mg BEDTIME SAM Administration Haloperidol 5 mg 03/22/20 18:50 03/23/20 15:04 Haloperidol 5 Mg Tablet PO 5 mg Q4H PRN Administration Auditory hallucinations Hydroxyzine HCl 25 mg 03/19/20 17:10 03/24/20 16:34 Hydroxyzine Hcl 25 Mg Tablet PO 25 mg QID PRN Administration Anxiety Lorazepam 1 mg 03/22/20 18:51 03/25/20 14:39 Lorazepam 1 Mg Tablet PO 1 mg Q4H PRN Administration Anxiety Magnesium Hydroxide 30 ml 03/20/20 18:31 Milk Of Magnesia 30 Ml Oral.Susp PO DAILY PRN Constipation Melatonin 6 mg 03/19/20 21:00 03/24/20 22:02 Melatonin 3 Mg Tablet PO 6 mg BEDTIME SAM Administration Methadone HCl 50 mg 03/20/20 10:47 03/25/20 08:53 Methadone Hcl 1 Mg/0.1 Ml Oral.Conc PO 50 mg DAILY SAM Administration Mirtazapine 15 mg 03/19/20 21:00 03/24/20 22:03 Mirtazapine 15 Mg Tablet PO 15 mg BEDTIME SAM Administration Nicotine 21 mg 03/21/20 11:00 03/25/20 08:53 Nicotine 21 Mg Patch.Td24 TRANSDERMA 21 mg DAILY SAM Administration Trazodone HCl 50 mg 03/20/20 18:31 Trazodone Hcl 50 Mg Tablet PO BEDTIME PRN Insomnia Allergies Allergies Allergy/AdvReac Type Severity Reaction Status Date / Time No Known Allergies Allergy Unverified 01/10/20 18:30 Assessment & Plan Assessment & Plan (1) PTSD (post-traumatic stress disorder): Status: Acute Code(s): F43.10 - Post-traumatic stress disorder, unspecified (2) Polysubstance (including opioids) dependence, daily use: Status: Acute Code(s): F11.20 - Opioid dependence, uncomplicated; F19.20 - Other psychoactive substance dependence, uncomplicated Assessment and Plan: CT current treatment plan Greater than 50% of the session was spent on counseling and/or coordination of care Patient educated on: diagnosis, medication risk/benefits and substance abuse Informed Consent: further education needed Reason for contiued inpatient stay Substantial Risk for: rapid decompensation
[2020-03-25 16:26] VITALS: BP 131/70; PULSE 91; TEMP 36.9
[2020-03-25] MEDS: HaloperidoL 5 MG TABLET 10 MG PO (21:00)
[2020-03-25] MEDS: Mirtazapine 15 MG TABLET PO (21:01)
[2020-03-25] MEDS: Melatonin 3 MG TABLET 6 MG PO (21:01)
[2020-03-25 21:23] VITALS: BP 128/81; PULSE 104
[2020-03-25] MEDS: cloNIDine HCL 0.1 MG TABLET PO (21:23)
[2020-03-25] MEDS: hydrOXYzine HCL 25 MG TABLET PO (21:24)
[2020-03-26 06:25] VITALS: BP 122/62; PULSE 81; RESP 16; TEMP 36.7
[2020-03-26] MEDS: Gabapentin 300 MG CAPSULE 600 MG PO ×3 (09:23→20:26)
[2020-03-26] MEDS: buPROPion HCl XL 150 MG TAB.ER.24H 450 MG PO (09:23)
[2020-03-26] MEDS: HaloperidoL 5 MG TABLET PO ×2 (09:24→17:00)
[2020-03-26] MEDS: Benztropine Mesylate 0.5 MG TABLET PO ×2 (09:24→20:26)
[2020-03-26] MEDS: Nicotine 21 MG PATCH.TD24 TRANSDERMA (09:26)
[2020-03-26] MEDS: LORazepam 1 MG TABLET PO ×3 (09:26→21:25)
--- NOTE | 2020-03-26 09:27 | HO.PSYCHPN ---
Subjective Subjective Date of Service: 03/26/20 Reason For Visit: depressed mood Subjective Notes: Conditional Voluntary Interim History: Chevy still has intermittent SI and AH. He does feel that he is gradually getting better. He has been on seroquel, risperdal and zyprexa in the past, and he feels that haldol is the most effective treatment that he has had. Medication Compliance: Yes Side effects from medications: No Attending Groups: Intermittent Review of Systems Acute medical concerns: No Medical Review of Systems: unchanged Mental Status Exam Mental Status Exam Patient Appearance: Well Grooomed Patient Orientation: Person, Place, Time and Situation Level of Consciousness: Awake Patient Behavior: Appropriate and Cooperative Mood Description: Calm and Sad Affect Description: Calm and Sad Speech Pattern: Clear, Appropriate and Soft-Spoken Memory Description: Intact Hallucinations: Auditory (Less) Delusions: Not Present Thought Process: Rumination and Goal Oriented Thought Content: positive for Intact, positive for Goal Oriented, negative for Suicidal Ideation (Thoughts of hanging himself but able to use staff support) and negative for Homicidal Ideation Depressive Symptoms: Feelings of Worthlessness, Hopelessness, Unhappiness, Increased Fatigue, Thoughts of /Suicide and Low Self Esteem Judgement: Fair Diagnostics Vital Signs (24Hr): Vital Signs - 24 hr 03/25/20 16:26 03/25/20 21:23 03/26/20 06:25 Temperature 98.5 F 98.1 F Pulse Rate 91 104 H 81 Respiratory Rate 16 Blood Pressure 131/70 128/81 122/62 Body Mass Index 27.6 Labs Results: 03/19/20 13:53 03/19/20 13:53 Medications Medications Current Medications Generic Name Dose Route Start Last Admin Trade Name Freq PRN Reason Stop Dose Admin Acetaminophen 650 mg 03/20/20 18:31 03/25/20 14:38 Acetaminophen 325 Mg Tablet PO 650 mg Q6H PRN Administration Headache/Pain Mild Scale (1-3) Al Hydroxide/Mg Hydroxide 30 ml 03/20/20 18:31 03/21/20 15:22 Magnesium Hydrox/Alum Hydrox 30 Ml Oral.Susp PO 30 ml Q6H PRN Administration Heartburn/Nausea Benztropine Mesylate 0.5 mg 03/19/20 21:00 03/25/20 21:01 Benztropine Mesylate 0.5 Mg Tablet PO 0.5 mg BID SAM Administration Bupropion HCl 450 mg 03/23/20 09:00 03/25/20 08:52 Bupropion Hcl Xl 150 Mg Tab.Er.24h PO 450 mg DAILY SAM Administration Clonidine HCl 0.1 mg 03/19/20 17:01 03/25/20 21:23 Clonidine Hcl 0.1 Mg Tablet PO 0.1 mg TID PRN Administration Anxiety Protocol Gabapentin 600 mg 03/21/20 15:00 03/25/20 21:01 Gabapentin 300 Mg Capsule PO 600 mg TID SAM Administration Haloperidol 5 mg 03/22/20 09:00 03/25/20 08:52 Haloperidol 5 Mg Tablet PO 5 mg DAILY SAM Administration Haloperidol 10 mg 03/21/20 21:00 03/25/20 21:00 Haloperidol 5 Mg Tablet PO 10 mg BEDTIME SAM Administration Haloperidol 5 mg 03/22/20 18:50 03/23/20 15:04 Haloperidol 5 Mg Tablet PO 5 mg Q4H PRN Administration Auditory hallucinations Hydroxyzine HCl 25 mg 03/19/20 17:10 03/25/20 21:24 Hydroxyzine Hcl 25 Mg Tablet PO 25 mg QID PRN Administration Anxiety Lorazepam 1 mg 03/22/20 18:51 03/25/20 21:10 Lorazepam 1 Mg Tablet PO 1 mg Q4H PRN Administration Anxiety Magnesium Hydroxide 30 ml 03/20/20 18:31 Milk Of Magnesia 30 Ml Oral.Susp PO DAILY PRN Constipation Melatonin 6 mg 03/19/20 21:00 03/25/20 21:01 Melatonin 3 Mg Tablet PO 6 mg BEDTIME SAM Administration Methadone HCl 50 mg 03/20/20 10:47 03/25/20 08:53 Methadone Hcl 1 Mg/0.1 Ml Oral.Conc PO 50 mg DAILY SAM Administration Mirtazapine 15 mg 03/19/20 21:00 03/25/20 21:01 Mirtazapine 15 Mg Tablet PO 15 mg BEDTIME SAM Administration Nicotine 21 mg 03/21/20 11:00 03/25/20 08:53 Nicotine 21 Mg Patch.Td24 TRANSDERMA 21 mg DAILY SAM Administration Trazodone HCl 50 mg 03/20/20 18:31 Trazodone Hcl 50 Mg Tablet PO BEDTIME PRN Insomnia Allergies Allergies Allergy/AdvReac Type Severity Reaction Status Date / Time No Known Allergies Allergy Unverified 09/17/20 18:30 Assessment & Plan Assessment & Plan (1) PTSD (post-traumatic stress disorder): Status: Acute Code(s): F43.10 - Post-traumatic stress disorder, unspecified (2) Polysubstance (including opioids) dependence, daily use: Status: Acute Code(s): F11.20 - Opioid dependence, uncomplicated; F19.20 - Other psychoactive substance dependence, uncomplicated Assessment and Plan: CT current treatment plan Greater than 50% of the session was spent on counseling and/or coordination of care Patient educated on: diagnosis, medication risk/benefits and substance abuse Informed Consent: further education needed Reason for contiued inpatient stay Substantial Risk for: rapid decompensation
[2020-03-26 17:00] VITALS: BP 120/80; PULSE 99
[2020-03-26] MEDS: cloNIDine HCL 0.1 MG TABLET PO (17:00)
[2020-03-26 18:00] VITALS: BP 127/80; PULSE 99; TEMP 36.7
[2020-03-26] MEDS: Melatonin 3 MG TABLET 6 MG PO (20:23)
[2020-03-26] MEDS: HaloperidoL 5 MG TABLET 10 MG PO (20:25)
[2020-03-26] MEDS: Mirtazapine 15 MG TABLET PO (20:26)
[2020-03-27 06:18] VITALS: BP 114/66; PULSE 80; RESP 18; TEMP 36.6; O2SAT 98
[2020-03-27 07:00] VITALS: BMI 29.1
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
[2020-03-27] MEDS: Benztropine Mesylate 0.5 MG TABLET PO ×2 (09:32→20:35)
[2020-03-27] MEDS: LORazepam 1 MG TABLET PO (09:32)
[2020-03-27] MEDS: Gabapentin 300 MG CAPSULE 600 MG PO ×3 (09:32→20:35)
[2020-03-27] MEDS: buPROPion HCl XL 150 MG TAB.ER.24H 450 MG PO (09:32)
[2020-03-27] MEDS: HaloperidoL 5 MG TABLET PO (09:33)
[2020-03-27] MEDS: Nicotine 21 MG PATCH.TD24 TRANSDERMA (09:33)
[2020-03-27 18:00] VITALS: BP 107/66; PULSE 92; TEMP 36.8
[2020-03-27 20:34] VITALS: BP 107/66; PULSE 92
[2020-03-27] MEDS: cloNIDine HCL 0.1 MG TABLET PO (20:34)
[2020-03-27] MEDS: Melatonin 3 MG TABLET 6 MG PO (20:35)
[2020-03-27] MEDS: Mirtazapine 15 MG TABLET PO (20:35)
[2020-03-27] MEDS: HaloperidoL 5 MG TABLET 10 MG PO (20:35)
[2020-03-27] MEDS: Magnesium Hydrox/Alum Hydrox 30 ML ORAL.SUSP PO (22:39)
[2020-03-28 06:12] VITALS: BP 101/56; PULSE 73; RESP 16; TEMP 36.2; O2SAT 98
[2020-03-28] MEDS: buPROPion HCl XL 150 MG TAB.ER.24H 450 MG PO (09:24)
[2020-03-28] MEDS: Gabapentin 300 MG CAPSULE 600 MG PO ×3 (09:24→20:40)
[2020-03-28] MEDS: HaloperidoL 5 MG TABLET PO (09:24)
[2020-03-28] MEDS: Benztropine Mesylate 0.5 MG TABLET PO ×2 (09:25→20:40)
[2020-03-28] MEDS: Nicotine 21 MG PATCH.TD24 TRANSDERMA (09:25)
--- NOTE | 2020-03-28 09:26 | HO.PSYCHPN ---
Subjective Subjective Date of Service: 03/28/20 Reason For Visit: depressed mood Subjective Notes: Conditional Voluntary Interim History: Chevy is banned from [facility] due to having drugs there. He was informed that there are no alternatives and he should consider a half-way. He was able to accept this, and said that he would talk to his mother to see if he could stay there. Medication Compliance: Yes Side effects from medications: No Attending Groups: Intermittent Review of Systems Acute medical concerns: No Medical Review of Systems: unchanged Review of Systems Review of Systems Constitutional: No Weight loss, No Fever, No Chills, No Night Sweats, No Fatigue, No Malaise ENT/Mouth: No Hearing loss, No Ear Pain, No Nasal Congestion, No Sinus Pain, No Hoarseness, No sore throat, No Rhinorrhea, No Swallowing Difficulty Eyes: No Eye Pain, No Swelling, No Redness, No Foreign Body, No Discharge, No Vision Changes Cardiovascular: No Chest Pain, No SOB, No Dyspnea on Exertion, No Orthopnea, No Edema, No Palpitations Respiratory: No Cough, No Sputum, No Wheezing, No Dyspnea Gastrointestinal: No Nausea, No Vomiting, No Diarrhea, No Constipation, No abdominal Pain, No Hematochezia, No Melena Genitourinary: no irregular bleeding, No Dysuria, No Urinary Frequency, No Hematuria, No Urinary Incontinence, No Urgency, No Flank Pain, No Urinary Flow Changes, No Hesitancy Musculoskeletal: No joint pain, No Myalgias, No Joint Swelling Skin: No Skin Lesions, No rash Neuro: No Weakness, No Numbness, No Paresthesias, No Loss of Consciousness, No Dizziness, No Headache Psych: As noted in HPI Heme/Lymph: No Bruising, No Bleeding,No Lymphadenopathy Endocrine: No Polyuria, No Polydipsia, No Temperature Intolerance Mental Status Exam Mental Status Exam Patient Appearance: Well Grooomed Patient Orientation: Person, Place, Time and Situation Level of Consciousness: Awake Patient Behavior: Appropriate and Cooperative Mood Description: Calm and Sad Affect Description: Calm and Sad Speech Pattern: Clear, Appropriate and Soft-Spoken Memory Description: Intact Hallucinations: None Delusions: Not Present Thought Content: negative for Suicidal Ideation and negative for Homicidal Ideation Judgement: Fair Diagnostics Vital Signs (24Hr): Vital Signs - 24 hr 03/27/20 18:00 03/27/20 20:34 03/28/20 06:12 Temperature 98.3 F 97.2 F Pulse Rate 92 92 73 Respiratory Rate 16 Blood Pressure 107/66 107/66 101/56 L Pulse Oximetry 98 Body Mass Index 29.1 Labs Results: 03/19/20 13:53 03/19/20 13:53 Medications Medications Current Medications Generic Name Dose Route Start Last Admin Trade Name Freq PRN Reason Stop Dose Admin Acetaminophen 650 mg 03/20/20 18:31 03/25/20 14:38 Acetaminophen 325 Mg Tablet PO 650 mg Q6H PRN Administration Headache/Pain Mild Scale (1-3) Al Hydroxide/Mg Hydroxide 30 ml 03/20/20 18:31 03/27/20 22:39 Magnesium Hydrox/Alum Hydrox 30 Ml Oral.Susp PO 30 ml Q6H PRN Administration Heartburn/Nausea Benztropine Mesylate 0.5 mg 03/19/20 21:00 03/27/20 20:35 Benztropine Mesylate 0.5 Mg Tablet PO 0.5 mg BID SAM Administration Bupropion HCl 450 mg 03/23/20 09:00 03/27/20 09:32 Bupropion Hcl Xl 150 Mg Tab.Er.24h PO 450 mg DAILY SAM Administration Clonidine HCl 0.1 mg 03/19/20 17:01 03/27/20 20:34 Clonidine Hcl 0.1 Mg Tablet PO 0.1 mg TID PRN Administration Anxiety Protocol Gabapentin 600 mg 03/21/20 15:00 03/27/20 20:35 Gabapentin 300 Mg Capsule PO 600 mg TID SAM Administration Haloperidol 5 mg 03/22/20 09:00 03/27/20 09:33 Haloperidol 5 Mg Tablet PO 5 mg DAILY SAM Administration Haloperidol 10 mg 03/21/20 21:00 03/27/20 20:35 Haloperidol 5 Mg Tablet PO 10 mg BEDTIME SAM Administration Haloperidol 5 mg 03/22/20 18:50 03/26/20 17:00 Haloperidol 5 Mg Tablet PO 5 mg Q4H PRN Administration Auditory hallucinations Magnesium Hydroxide 30 ml 03/20/20 18:31 Milk Of Magnesia 30 Ml Oral.Susp PO DAILY PRN Constipation Melatonin 6 mg 03/19/20 21:00 03/27/20 20:35 Melatonin 3 Mg Tablet PO 6 mg BEDTIME SAM Administration Methadone HCl 50 mg 03/20/20 10:47 03/27/20 09:32 Methadone Hcl 1 Mg/0.1 Ml Oral.Conc PO 50 mg DAILY SAM Administration Mirtazapine 15 mg 03/19/20 21:00 03/27/20 20:35 Mirtazapine 15 Mg Tablet PO 15 mg BEDTIME SAM Administration Nicotine 21 mg 03/21/20 11:00 03/27/20 09:33 Nicotine 21 Mg Patch.Td24 TRANSDERMA 21 mg DAILY SAM Administration Trazodone HCl 50 mg 03/20/20 18:31 Trazodone Hcl 50 Mg Tablet PO BEDTIME PRN Insomnia Allergies Allergies Allergy/AdvReac Type Severity Reaction Status Date / Time No Known Allergies Allergy Unverified 01/10/20 18:30 Assessment & Plan Assessment & Plan (1) PTSD (post-traumatic stress disorder): Status: Acute Code(s): F43.10 - Post-traumatic stress disorder, unspecified (2) Polysubstance (including opioids) dependence, daily use: Status: Acute Code(s): F11.20 - Opioid dependence, uncomplicated; F19.20 - Other psychoactive substance dependence, uncomplicated Assessment and Plan: CT current treatment plan Reduce prn medications Anticipate DC on 03/31/2020 Greater than 50% of the session was spent on counseling and/or coordination of care
[2020-03-28 14:49] VITALS: BP 115/68; PULSE 95
[2020-03-28] MEDS: cloNIDine HCL 0.1 MG TABLET PO ×2 (14:49→20:41)
[2020-03-28] MEDS: Mirtazapine 15 MG TABLET PO (20:40)
[2020-03-28] MEDS: HaloperidoL 5 MG TABLET 10 MG PO (20:40)
[2020-03-28] MEDS: Melatonin 3 MG TABLET 6 MG PO (20:40)
[2020-03-28 20:41] VITALS: BP 107/63; PULSE 87
[2020-03-28 20:43] VITALS: TEMP 36.9
[2020-03-28] MEDS: hydrOXYzine HCL 25 MG TABLET PO (21:23)
[2020-03-28] MEDS: Milk of Magnesia 30 ML ORAL.SUSP PO (21:23)
[2020-03-29 06:00] VITALS: BP 115/60; PULSE 70; TEMP 36.2
[2020-03-29] MEDS: Nicotine 21 MG PATCH.TD24 TRANSDERMA (09:11)
[2020-03-29] MEDS: HaloperidoL 5 MG TABLET PO (09:12)
[2020-03-29] MEDS: Benztropine Mesylate 0.5 MG TABLET PO ×2 (09:12→20:15)
[2020-03-29] MEDS: Gabapentin 300 MG CAPSULE 600 MG PO ×3 (09:12→20:14)
[2020-03-29] MEDS: buPROPion HCl XL 150 MG TAB.ER.24H 450 MG PO (09:12)
[2020-03-29 09:33] VITALS: BP 119/70; PULSE 86
[2020-03-29] MEDS: cloNIDine HCL 0.1 MG TABLET PO ×3 (09:33→20:35)
--- NOTE | 2020-03-29 11:01 | HO.PSYCHPN ---
Subjective Subjective Date of Service: 03/29/20 Reason For Visit: depressed mood Subjective Notes: Conditional Voluntary Interim History: reports he is terrible though he is well castellanos and organizing his clothing feels suicidal and would like prn of hydroxyzine again for anxiety (though it made him xs sedated other day) Medication Compliance: Yes Side effects from medications: No (denies sedation now - ) Attending Groups: Intermittent Review of Systems Acute medical concerns: No Medical Review of Systems: unchanged Mental Status Exam Mental Status Exam Patient Appearance: Well Grooomed Patient Orientation: Person, Place, Time and Situation Level of Consciousness: Awake Patient Behavior: Appropriate Mood Description: Anxious Affect Description: Apprehensive Patient Cognition Impaired: No Ability to Follow Directions: Fair Speech Pattern: Clear Memory Description: Intact Hallucinations: None Delusions: Not Present Thought Process: Intact Thought Content: positive for Intact Depressive Symptoms: Increased Anxiety, Hopelessness and Thoughts of /Suicide (has no where to go) Judgement: Fair Diagnostics Vital Signs (24Hr): Vital Signs - 24 hr 03/28/20 14:49 03/28/20 20:41 03/28/20 20:43 Temperature 98.5 F Pulse Rate 95 87 Blood Pressure 115/68 107/63 03/29/20 06:00 03/29/20 09:33 Temperature 97.1 F Pulse Rate 70 86 Blood Pressure 115/60 119/70 Body Mass Index 29.1 Labs Results: 03/19/20 13:53 03/19/20 13:53 Medications Medications Current Medications Generic Name Dose Route Start Last Admin Trade Name Freq PRN Reason Stop Dose Admin Acetaminophen 650 mg 03/20/20 18:31 03/25/20 14:38 Acetaminophen 325 Mg Tablet PO 650 mg Q6H PRN Administration Headache/Pain Mild Scale (1-3) Al Hydroxide/Mg Hydroxide 30 ml 03/20/20 18:31 03/27/20 22:39 Magnesium Hydrox/Alum Hydrox 30 Ml Oral.Susp PO 30 ml Q6H PRN Administration Heartburn/Nausea Benztropine Mesylate 0.5 mg 03/19/20 21:00 03/29/20 09:12 Benztropine Mesylate 0.5 Mg Tablet PO 0.5 mg BID SAM Administration Bupropion HCl 450 mg 03/23/20 09:00 03/29/20 09:12 Bupropion Hcl Xl 150 Mg Tab.Er.24h PO 450 mg DAILY SAM Administration Clonidine HCl 0.1 mg 03/19/20 17:01 03/29/20 09:33 Clonidine Hcl 0.1 Mg Tablet PO 0.1 mg TID PRN Administration Anxiety Protocol Gabapentin 600 mg 03/21/20 15:00 03/29/20 09:12 Gabapentin 300 Mg Capsule PO 600 mg TID SAM Administration Haloperidol 5 mg 03/22/20 09:00 03/29/20 09:12 Haloperidol 5 Mg Tablet PO 5 mg DAILY SAM Administration Haloperidol 10 mg 03/21/20 21:00 03/28/20 20:40 Haloperidol 5 Mg Tablet PO 10 mg BEDTIME SAM Administration Haloperidol 5 mg 03/22/20 18:50 03/26/20 17:00 Haloperidol 5 Mg Tablet PO 5 mg Q4H PRN Administration Auditory hallucinations Hydroxyzine HCl 25 mg 03/28/20 21:02 03/28/20 21:23 Hydroxyzine Hcl 25 Mg Tablet PO 25 mg BEDTIME MRX1 PRN Administration insomnia Magnesium Hydroxide 30 ml 03/20/20 18:31 03/28/20 21:23 Milk Of Magnesia 30 Ml Oral.Susp PO 30 ml DAILY PRN Administration Constipation Melatonin 6 mg 03/19/20 21:00 03/28/20 20:40 Melatonin 3 Mg Tablet PO 6 mg BEDTIME SAM Administration Methadone HCl 50 mg 03/20/20 10:47 03/29/20 09:12 Methadone Hcl 1 Mg/0.1 Ml Oral.Conc PO 50 mg DAILY SAM Administration Mirtazapine 15 mg 03/19/20 21:00 03/28/20 20:40 Mirtazapine 15 Mg Tablet PO 15 mg BEDTIME SAM Administration Nicotine 21 mg 03/21/20 11:00 03/29/20 09:11 Nicotine 21 Mg Patch.Td24 TRANSDERMA 21 mg DAILY SAM Administration Trazodone HCl 50 mg 03/20/20 18:31 Trazodone Hcl 50 Mg Tablet PO BEDTIME PRN Insomnia Allergies Allergies Allergy/AdvReac Type Severity Reaction Status Date / Time No Known Allergies Allergy Unverified 01/10/20 18:30 Assessment & Plan Assessment & Plan (1) Polysubstance (including opioids) dependence, daily use: Status: Acute Code(s): F11.20 - Opioid dependence, uncomplicated; F19.20 - Other psychoactive substance dependence, uncomplicated (2) PTSD (post-traumatic stress disorder): Status: Acute Code(s): F43.10 - Post-traumatic stress disorder, unspecified Assessment and Plan: restarted prn hydroxzyine in day watch for day sedation- over weekend (3) Suicidal ideation: Status: Acute Code(s): R45.851 - Suicidal ideations Assessment and Plan: patient has limited his options from prior programs noncompliance Greater than 50% of the session was spent on counseling and/or coordination of care
[2020-03-29 15:10] VITALS: BP 108/65; PULSE 95
[2020-03-29] MEDS: hydrOXYzine HCL 25 MG TABLET PO ×2 (15:11→20:35)
[2020-03-29 18:00] VITALS: BP 106/62; PULSE 86; TEMP 36.7
[2020-03-29] MEDS: Melatonin 3 MG TABLET 6 MG PO (20:14)
[2020-03-29] MEDS: HaloperidoL 5 MG TABLET 10 MG PO (20:14)
[2020-03-29] MEDS: Mirtazapine 15 MG TABLET PO (20:15)
[2020-03-29 20:35] VITALS: BP 102/67; PULSE 84
[2020-03-30 06:00] VITALS: BP 85/46; PULSE 69; TEMP 36.3
[2020-03-30] MEDS: Nicotine 21 MG PATCH.TD24 TRANSDERMA (09:11)
[2020-03-30] MEDS: Gabapentin 300 MG CAPSULE 600 MG PO ×3 (09:12→21:22)
[2020-03-30] MEDS: buPROPion HCl XL 150 MG TAB.ER.24H 450 MG PO (09:12)
[2020-03-30] MEDS: HaloperidoL 5 MG TABLET PO (09:12)
[2020-03-30] MEDS: Benztropine Mesylate 0.5 MG TABLET PO ×2 (09:12→21:22)
[2020-03-30 14:03] VITALS: BP 109/62; PULSE 88
[2020-03-30] MEDS: cloNIDine HCL 0.1 MG TABLET PO ×2 (14:03→22:44)
[2020-03-30] MEDS: hydrOXYzine HCL 25 MG TABLET PO ×2 (14:04→22:44)
--- NOTE | 2020-03-30 14:37 | HO.PSYCHPN ---
Subjective Subjective Date of Service: 03/30/20 Reason For Visit: depressed mood Subjective Notes: Conditional Voluntary Interim History: Ongoing anxiety and trouble with si- in setting of not having clear plan on dc- Medication Compliance: Yes Side effects from medications: No (doesn't seem to be sedated like the other day) Attending Groups: Intermittent Review of Systems Acute medical concerns: No Medical Review of Systems: unchanged Diagnostics Vital Signs (24Hr): Vital Signs - 24 hr 03/29/20 15:10 03/29/20 18:00 03/29/20 20:35 Temperature 98.0 F Pulse Rate 95 86 84 Blood Pressure 108/65 106/62 102/67 03/30/20 06:00 03/30/20 14:03 Temperature 97.4 F Pulse Rate 69 88 Blood Pressure 85/46 L 109/62 Body Mass Index 29.1 Labs Results: 03/19/20 13:53 03/19/20 13:53 Medications Medications Current Medications Generic Name Dose Route Start Last Admin Trade Name Freq PRN Reason Stop Dose Admin Acetaminophen 650 mg 03/20/20 18:31 03/25/20 14:38 Acetaminophen 325 Mg Tablet PO 650 mg Q6H PRN Administration Headache/Pain Mild Scale (1-3) Al Hydroxide/Mg Hydroxide 30 ml 03/20/20 18:31 03/27/20 22:39 Magnesium Hydrox/Alum Hydrox 30 Ml Oral.Susp PO 30 ml Q6H PRN Administration Heartburn/Nausea Benztropine Mesylate 0.5 mg 03/19/20 21:00 03/30/20 09:12 Benztropine Mesylate 0.5 Mg Tablet PO 0.5 mg BID SAM Administration Bupropion HCl 450 mg 03/23/20 09:00 03/30/20 09:12 Bupropion Hcl Xl 150 Mg Tab.Er.24h PO 450 mg DAILY SAM Administration Clonidine HCl 0.1 mg 03/19/20 17:01 03/30/20 14:03 Clonidine Hcl 0.1 Mg Tablet PO 0.1 mg TID PRN Administration Anxiety Protocol Gabapentin 600 mg 03/21/20 15:00 03/30/20 14:03 Gabapentin 300 Mg Capsule PO 600 mg TID SAM Administration Haloperidol 5 mg 03/22/20 09:00 03/30/20 09:12 Haloperidol 5 Mg Tablet PO 5 mg DAILY SAM Administration Haloperidol 10 mg 03/21/20 21:00 03/29/20 20:14 Haloperidol 5 Mg Tablet PO 10 mg BEDTIME SAM Administration Haloperidol 5 mg 03/22/20 18:50 03/26/20 17:00 Haloperidol 5 Mg Tablet PO 5 mg Q4H PRN Administration Auditory hallucinations Hydroxyzine HCl 25 mg 03/28/20 21:02 03/29/20 20:35 Hydroxyzine Hcl 25 Mg Tablet PO 25 mg BEDTIME MRX1 PRN Administration insomnia Hydroxyzine HCl 25 mg 03/29/20 14:29 03/30/20 14:04 Hydroxyzine Hcl 25 Mg Tablet PO 25 mg Q8H PRN Administration Anxiety Magnesium Hydroxide 30 ml 03/20/20 18:31 03/28/20 21:23 Milk Of Magnesia 30 Ml Oral.Susp PO 30 ml DAILY PRN Administration Constipation Melatonin 6 mg 03/19/20 21:00 03/29/20 20:14 Melatonin 3 Mg Tablet PO 6 mg BEDTIME SAM Administration Methadone HCl 50 mg 03/20/20 10:47 03/30/20 09:11 Methadone Hcl 1 Mg/0.1 Ml Oral.Conc PO 50 mg DAILY SAM Administration Mirtazapine 15 mg 03/19/20 21:00 03/29/20 20:15 Mirtazapine 15 Mg Tablet PO 15 mg BEDTIME SAM Administration Nicotine 21 mg 03/21/20 11:00 03/30/20 09:11 Nicotine 21 Mg Patch.Td24 TRANSDERMA 21 mg DAILY SAM Administration Trazodone HCl 50 mg 03/20/20 18:31 Trazodone Hcl 50 Mg Tablet PO BEDTIME PRN Insomnia Allergies Allergies Allergy/AdvReac Type Severity Reaction Status Date / Time No Known Allergies Allergy Unverified 01/10/20 18:30 Assessment & Plan Assessment & Plan (1) PTSD (post-traumatic stress disorder): Status: Acute Code(s): F43.10 - Post-traumatic stress disorder, unspecified Assessment and Plan: ongoing anxiety (2) Suicidal ideation: Status: Acute Code(s): R45.851 - Suicidal ideations Assessment and Plan: around dc - (3) Polysubstance (including opioids) dependence, daily use: Status: Acute Code(s): F11.20 - Opioid dependence, uncomplicated; F19.20 - Other psychoactive substance dependence, uncomplicated Assessment and Plan: no current cravings Greater than 50% of the session was spent on counseling and/or coordination of care
[2020-03-30] MEDS: Magnesium Hydrox/Alum Hydrox 30 ML ORAL.SUSP PO ×2 (17:28→22:46)
[2020-03-30 18:00] VITALS: BP 120/58; PULSE 84; TEMP 36.8
[2020-03-30] MEDS: HaloperidoL 5 MG TABLET 10 MG PO (21:22)
[2020-03-30] MEDS: Melatonin 3 MG TABLET 6 MG PO (21:22)
[2020-03-30] MEDS: Mirtazapine 15 MG TABLET PO (21:22)
[2020-03-30 22:44] VITALS: BP 107/66; PULSE 83
[2020-03-31 06:25] VITALS: BP 100/55; PULSE 70; RESP 18; TEMP 36.4; O2SAT 97
[2020-03-31] MEDS: buPROPion HCl XL 150 MG TAB.ER.24H 450 MG PO (08:50)
[2020-03-31] MEDS: Nicotine 21 MG PATCH.TD24 TRANSDERMA (08:50)
[2020-03-31] MEDS: Gabapentin 300 MG CAPSULE 600 MG PO (08:50)
[2020-03-31] MEDS: HaloperidoL 5 MG TABLET PO (08:51)
[2020-03-31] MEDS: Benztropine Mesylate 0.5 MG TABLET PO (08:51)
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
== END 2020-03-31 14:38 | disposition other institution (70) | DRG 755 ==
LOC: HO.ED 03-20 18:24 → HO.PM5 03-20 18:39
PROVIDERS: Nurse Practitioner Primary Care; Physician Assistant Medical; Admitting Provider Psychiatry & Neurology Psychiatry; Emergency Provider Emergency Medicine; Visit Provider Psychiatry & Neurology Psychiatry
DX: F43.10 Post-traumatic stress disorder, unspecified (principal); R45.851 Suicidal ideations; F11.20 Opioid dependence, uncomplicated; F17.210 Nicotine dependence, cigarettes, uncomplicated; Z71.6 Tobacco abuse counseling; Z59.0 Homelessness; Z20.828 Contact with and (suspected) exposure to other viral communicable diseases; Z79.899 Other long term (current) drug therapy
CPT/HCPCS: 36415; 80053; 80307; 80320; 81001; 83036; 85025; 87635; 93005; 99232; 99285